=== PATIENT | male | born 1960 | race Caucasian/White ===

== ENCOUNTER → 2020-06-07 | Outpatient (REF) | payer SELFPAY | LOC: M LABCFH 13:32 | PROVIDERS: ATTEND Neuromusculoskeletal Medicine & OMM | DX: L98.9 Disorder of the skin and subcutaneous tissue, unspecified (principal) ==

== ENCOUNTER → 2022-08-31 | Outpatient (CLI) | payer OTHER | LOC: M RAD 08:25 | PROVIDERS: ATTEND Registered Nurse | DX: M25.512 Pain in left shoulder (principal); M65.342 Trigger finger, left ring finger ==

== ENCOUNTER → 2025-02-11 | Outpatient (CLI) | payer OTHER | LOC: M EKG 10:38 | PROVIDERS: ATTEND Physician Assistant | DX: R00.1 Bradycardia, unspecified (principal) ==